=== PATIENT | male | born 1955 | race Caucasian/White ===

== ENCOUNTER → 2018-05-05 | Outpatient (CLI) | payer MEDICAID ==
--- NOTE | 2018-05-05 11:58 | Diagnostic Imaging Report ---
INDICATION: SHORTNESS OF BREATH. COMPARISON: None. FINDINGS: Frontal and lateral views of the chest demonstrate normal heart size and pulmonary vascularity. The lungs are clear. There are no signs of infiltrate, pleural effusions, or pneumothoraces. The visualized osseous structures show no acute abnormalities. IMPRESSION: No acute process. No signs of infiltrates, effusions, or pneumothoraces. Dictated by: Dictated on workstation # [id number]
== END ==
LOC: RAD FS 11:40
DX: R06.02 Shortness of breath (principal)
CPT/HCPCS: 71046